=== PATIENT | male | born 1985 | race Caucasian/White ===

== ENCOUNTER 2017-03-16 11:19 | Emergency (ER) | payer SELFPAY, OTHER | END 2017-03-16 13:08 | disposition home or self-care (01) | LOC: PHEFT 11:19 | DX: S20.212A Contusion of left front wall of thorax, initial encounter (principal); W22.8XXA Striking against or struck by other objects, initial encounter; Y99.0 Civilian activity done for income or pay; Z72.0 Tobacco use; Z87.442 Personal history of urinary calculi | CPT/HCPCS: 71045; 99283 ==